=== PATIENT | male | born 1955 | race Caucasian/White ===

== ENCOUNTER → 2017-03-01 | Outpatient (CLI) | payer BC, OTHER ==
--- NOTE | 2017-03-01 18:17 | REP ---
SUPINE ABDOMEN: 03/01/2017: Technique: Two views to encompass the entirety of the abdomen provided. Clinical history: Renal stone disease. Comparison: 09/05/2014. Findings: There are two calcifications over the right renal fossa one upper pole and the other interpolar lower pole region and measuring 6.4 superiorly and 9.1 mm for the more inferior calcification. I suspect a small calcification may be present in the lower pole on the left about 3 mm. Marginal osteophytes are noted. Pedicles, spinous and transverse processes intact. SI joints intact. Impression: 1. Two calcifications over the right renal fossa and one over the lower pole on the left essentially unchanged from the 2013 exam. A few pelvic phleboliths noted and degenerative changes in the spine. No other findings.
== END ==
LOC: M CLY 14:15
PROVIDERS: ATTEND Physician Assistant
DX: N20.0 Calculus of kidney (principal); I87.8 Other specified disorders of veins; M51.9 Unspecified thoracic, thoracolumbar and lumbosacral intervertebral disc disorder

== ENCOUNTER → 2017-03-10 | Outpatient (REF) | payer BC, OTHER ==
[2017-03-10 13:00] LABS: BASO % 0.6 % (0.0-1.0); EOS # 0.1 K/mm3 (0.0-0.50); EOS % 2.2 % (0.0-3.0); LARGE UNSTAINED CELL # 0.1 K/mm3 (0.0-0.4); LARGE UNSTAINED CELL % 2.9 % (0.0-4.0); LYMPH # 1.4 K/mm3 (1.5-4.5); LYMPH % 27.9 % (24.0-44.0); MEAN CORPUSCULAR HEMOGLOBIN 31.6 pg (27.0-33.0); MEAN CORPUSCULAR HGB CONC 34.7 g/dl (32.0-36.5); MONO # 0.3 K/mm3 (0.0-0.8); MONO % 7.3 % (0.0-5.0); NEUTROPHILS # 2.7 K/mm3 (1.8-7.7); NEUTROPHILS % 58.9 % (36.0-66.0); PLATELET COUNT, AUTOMATED 270 k/mm3 (150-450); RED CELL DISTRIBUTION WIDTH 13.4 % (11.5-14.5); WHITE BLOOD COUNT 4.6 K/mm3 (4.0-10.0)
[2017-03-10 14:08] LABS: ALBUMIN/GLOBULIN RATIO 1.14 (1.00-1.93); ALKALINE PHOSPHATASE 72 U/L (45-117); ALT/SGPT 29 U/L (12-78); ANION GAP 8 MEQ/L (8-16); AST/SGOT 17 U/L (15-37); BILIRUBIN,TOTAL 0.6 MG/DL (0.2-1.0); BLOOD UREA NITROGEN 17 MG/DL (7-18); CALCIUM LEVEL 9.4 MG/DL (8.8-10.2); CARBON DIOXIDE LEVEL 28 MEQ/L (21-32); CHLORIDE LEVEL 105 MEQ/L (98-107); CREATININE FOR GFR 1.07 MG/DL (0.70-1.30); GLOMERULAR FILTRATION RATE > 60.0 (>49); GLUCOSE, FASTING 93 MG/DL (80-110); POTASSIUM SERUM 4.2 MEQ/L (3.5-5.1); SODIUM LEVEL 141 MEQ/L (136-145); TOTAL PROTEIN 7.5 GM/DL (6.4-8.2)
== END ==
LOC: M LABNEURO 11:45
PROVIDERS: ATTEND Psychiatry & Neurology Neurology
DX: R56.9 Unspecified convulsions (principal)

== ENCOUNTER → 2017-06-27 | Outpatient (REF) | payer OTHER ==
[2017-06-27 17:18] LABS: ALBUMIN 3.7 GM/DL (3.2-5.2); ALBUMIN/GLOBULIN RATIO 1.03 (1.00-1.93); ALKALINE PHOSPHATASE 75 U/L (45-117); ALT/SGPT 38 U/L (12-78); ANION GAP 10 MEQ/L (8-16); AST/SGOT 17 U/L (15-37); BASO % 0.9 % (0.0-1.0); BILIRUBIN,TOTAL 0.4 MG/DL (0.2-1.0); BLOOD UREA NITROGEN 21 MG/DL (7-18); CALCIUM LEVEL 9.2 MG/DL (8.8-10.2); CARBON DIOXIDE LEVEL 26 MEQ/L (21-32); CHLORIDE LEVEL 107 MEQ/L (98-107); CHOLESTEROL LEVEL 237 MG/DL (<200); CREATININE FOR GFR 1.09 MG/DL (0.70-1.30); EOS # 0.2 K/mm3 (0.0-0.50); EOS % 3.3 % (0.0-3.0); GLOMERULAR FILTRATION RATE > 60.0 (>49); GLUCOSE, FASTING 91 MG/DL (80-110); LARGE UNSTAINED CELL # 0.2 K/mm3 (0.0-0.4); LARGE UNSTAINED CELL % 3.9 % (0.0-4.0); LYMPH % 38.6 % (24.0-44.0); MEAN CORPUSCULAR HEMOGLOBIN 31.1 pg (27.0-33.0); MEAN CORPUSCULAR HGB CONC 34.1 g/dl (32.0-36.5); MEAN CORPUSCULAR VOLUME 91.4 fl (80.0-96.0); MONO # 0.4 K/mm3 (0.0-0.8); MONO % 7.9 % (0.0-5.0); NEUTROPHILS # 2.3 K/mm3 (1.8-7.7); NEUTROPHILS % 45.4 % (36.0-66.0); PLATELET COUNT, AUTOMATED 300 k/mm3 (150-450); POTASSIUM SERUM 4.4 MEQ/L (3.5-5.1); RED CELL DISTRIBUTION WIDTH 12.6 % (11.5-14.5); SODIUM LEVEL 143 MEQ/L (136-145); TOTAL PROTEIN 7.3 GM/DL (6.4-8.2); TRIGLYCERIDES LEVEL 102 MG/DL (<150)
== END ==
LOC: M SFHCCAPE 06:59
PROVIDERS: ATTEND Physician Assistant
DX: I10 Essential (primary) hypertension (principal); E78.00 Pure hypercholesterolemia, unspecified

== ENCOUNTER → 2017-08-14 | Outpatient (REF) | payer OTHER | LOC: M SFHCCAPE 13:55 | PROVIDERS: ATTEND Physician Assistant | DX: M54.5 Low back pain (principal) ==

== ENCOUNTER → 2017-08-15 | Outpatient (CLI) | payer BC ==
--- NOTE | 2017-08-15 15:49 | REP ---
Thoracic spine four views: Comparison is a PA and lateral chest dated 06/13/2012. There is demineralization. There are mild grade 1 compression deformities of the T7, eight, 90 and 10 vertebral bodies, unchanged. There is moderate degenerative disc disease throughout the thoracic spine, unchanged. The pedicles are unremarkable. There are no lytic, blastic or destructive skeletal changes. Impression: Multiple grade 1 compression deformities of mid thoracic vertebral bodies, unchanged. Demineralization. Degenerative disc disease throughout the thoracic spine, unchanged.
--- NOTE | 2017-08-15 15:51 | REP ---
Lumbar spine five views: Comparison is a supine abdomen dated 03/01/2017. There are calcification superimposed over the right kidney, similar to the prior study. No left renal calculi are identified. Vertebral body heights and alignment are normal. There is degenerative disc disease at every lumbar level. This is unchanged. 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 There is no spondylolysis. There is no spondylolisthesis. There is mild osteoarthritis in the facet articulations. The pedicles and sacroiliac articulations are unremarkable. Impression: Multilevel degenerative disc disease. Mild facet osteoarthritis. Calcifications projected over the right kidney.
== END ==
LOC: M CLY 13:45
PROVIDERS: ATTEND Physician Assistant
DX: M54.6 Pain in thoracic spine (principal)

== ENCOUNTER → 2017-09-27 | Outpatient (REF) | payer OTHER ==
[2017-09-27 16:28] LABS: BASO # 0.1 10^3/uL (0.0-0.2); BASO % 1.1 % (0.0-1.0); EOS # 0.1 10^3/uL (0.0-0.50); EOS % 2.3 % (0.0-3.0); IMMATURE GRANULOCYTE % 0.2 % (0-0); LYMPH # 1.6 10^3/uL (1.5-4.5); LYMPH % 31.4 % (24.0-44.0); MEAN CORPUSCULAR HEMOGLOBIN 30.6 pg (27.0-33.0); MEAN CORPUSCULAR HGB CONC 34.6 g/dl (32.0-36.5); MEAN CORPUSCULAR VOLUME 88.3 fl (80.0-96.0); MONO # 0.5 10^3/uL (0.0-0.8); MONO % 9.6 % (0.0-5.0); NEUTROPHILS # 2.9 10^3/uL (1.8-7.7); NEUTROPHILS % 55.4 % (36.0-66.0); PLATELET COUNT, AUTOMATED 320 10^3/uL (150-450); RED CELL DISTRIBUTION WIDTH 12.2 % (11.5-14.5); WHITE BLOOD COUNT 5.2 10^3/uL (4.0-10.0)
[2017-09-27 16:36] LABS: ALBUMIN 4.2 GM/DL (3.2-5.2); ALBUMIN/GLOBULIN RATIO 1.17 (1.00-1.93); ALKALINE PHOSPHATASE 79 U/L (45-117); ALT/SGPT 28 U/L (12-78); ANION GAP 10 MEQ/L (8-16); AST/SGOT 15 U/L (7-37); BILIRUBIN,TOTAL 0.6 MG/DL (0.2-1.0); BLOOD UREA NITROGEN 22 MG/DL (7-18); CARBON DIOXIDE LEVEL 25 MEQ/L (21-32); CHLORIDE LEVEL 102 MEQ/L (98-107); CREATININE FOR GFR 1.12 MG/DL (0.70-1.30); GLOMERULAR FILTRATION RATE > 60.0 (>49); GLUCOSE, FASTING 98 MG/DL (80-110); POTASSIUM SERUM 4.3 MEQ/L (3.5-5.1); SODIUM LEVEL 137 MEQ/L (136-145); TOTAL PROTEIN 7.8 GM/DL (6.4-8.2)
[2017-09-27 16:41] LABS: VITAMIN B12 LEVEL 858 PG/ML (247-911)
[2017-09-27 16:57] LABS: ERYTHROCYTE SEDIMENTATION RATE 14 mm/hr (0-20)
[2017-10-03 10:14] LABS: Lyme Disease IgG/IgM Antibodie <0.91 ISR (0.00-0.90); Lyme Disease IgM Ab Quantitati <0.80 index (0.00-0.79)
== END ==
LOC: M SFHCCAPE 08:43
PROVIDERS: ATTEND Physician Assistant
DX: M25.50 Pain in unspecified joint (principal)

== ENCOUNTER → 2018-01-14 | Outpatient (REF) | payer OTHER | LOC: M LAB REF 19:06 | DX: R30.0 Dysuria (principal) ==

== ENCOUNTER → 2018-03-05 | Outpatient (CLI) | payer BC, OTHER | LOC: M CLY 09:41 | DX: N20.0 Calculus of kidney (principal) | CPT/HCPCS: 74018 ==

== ENCOUNTER → 2019-03-05 | Outpatient (REF) | payer OTHER | LOC: M LABDRWCV 17:03 | PROVIDERS: ATTEND Urology | DX: N20.0 Calculus of kidney (principal) ==

== ENCOUNTER → 2019-06-21 | Outpatient (CLI) | payer OTHER ==
[2019-06-21 12:10] LABS: BASO # 0.1 10^3/uL (0.0-0.2); EOS # 0.1 10^3/uL (0.0-0.50); EOS % 2.1 % (0.0-3.0); HEMATOCRIT 43.5 % (42.0-52.0); HEMOGLOBIN 14.6 g/dl (13.5-17.5); LYMPH # 1.7 10^3/uL (1.5-4.5); MEAN CORPUSCULAR HEMOGLOBIN 29.4 pg (27.0-33.0); MEAN CORPUSCULAR HGB CONC 33.6 g/dl (32.0-36.5); MEAN CORPUSCULAR VOLUME 87.5 fl (80.0-96.0); MONO # 0.7 10^3/uL (0.0-0.8); MONO % 11.3 % (0.0-5.0); NEUTROPHILS # 3.2 10^3/uL (1.8-7.7); NEUTROPHILS % 55.4 % (36.0-66.0); PLATELET COUNT, AUTOMATED 289 10^3/uL (150-450); RED BLOOD COUNT 4.97 10^6/uL (4.30-6.10); WHITE BLOOD COUNT 5.7 10^3/uL (4.0-10.0)
[2019-06-21 12:15] LABS: ALT/SGPT 23 U/L (12-78); BILIRUBIN,TOTAL 0.6 MG/DL (0.2-1.0); BLOOD UREA NITROGEN 25 MG/DL (7-18); CALCIUM LEVEL 9.4 MG/DL (8.8-10.2); CARBON DIOXIDE LEVEL 26 MEQ/L (21-32); CHLORIDE LEVEL 104 MEQ/L (98-107); CREATININE FOR GFR 1.16 MG/DL (0.70-1.30); GLOMERULAR FILTRATION RATE > 60.0 (>49); GLUCOSE, FASTING 89 MG/DL (70-100); POTASSIUM SERUM 4.3 MEQ/L (3.5-5.1); SODIUM LEVEL 140 MEQ/L (136-145); TOTAL PROTEIN 7.7 GM/DL (6.4-8.2)
[2019-06-21 12:23] LABS: TOTAL 25(OH) VITAMIN D 50.8 NG/ML (30.0-100.0)
[2019-06-21 12:24] LABS: VITAMIN B12 LEVEL 603 PG/ML (247-911)
[2019-06-21 12:45] LABS: FOLATE > 24.0 NG/ML (>5.4)
== END ==
LOC: M WUC 08:46
PROVIDERS: ATTEND Psychiatry & Neurology Neurology
DX: G40.89 Other seizures (principal)

== ENCOUNTER → 2019-10-21 | Outpatient (REF) | payer OTHER ==
[2019-10-21 16:56] LABS: BASO # 0.1 10^3/uL (0.0-0.2); BASO % 1.7 % (0.0-1.0); EOS # 0.2 10^3/uL (0.0-0.5); HEMATOCRIT 41.7 % (42.0-52.0); HEMOGLOBIN 13.8 g/dl (13.5-17.5); LYMPH # 1.9 10^3/uL (1.5-5.0); LYMPH % 30.9 % (24.0-44.0); MEAN CORPUSCULAR HEMOGLOBIN 30.3 pg (27.0-33.0); MEAN CORPUSCULAR HGB CONC 33.1 g/dl (32.0-36.5); MEAN CORPUSCULAR VOLUME 91.4 fl (80.0-96.0); MONO # 0.7 10^3/uL (0.0-0.8); MONO % 11.1 % (0.0-5.0); NEUTROPHILS # 3.2 10^3/uL (1.5-8.5); PLATELET COUNT, AUTOMATED 359 10^3/uL (150-450); RED BLOOD COUNT 4.56 10^6/uL (4.30-6.10); WHITE BLOOD COUNT 6.1 10^3/uL (4.0-10.0)
[2019-10-21 17:20] LABS: ALBUMIN 3.7 GM/DL (3.2-5.2); ALT/SGPT 26 U/L (12-78); BILIRUBIN,TOTAL 0.4 MG/DL (0.2-1.0); BLOOD UREA NITROGEN 24 MG/DL (7-18); CALCIUM LEVEL 9.4 MG/DL (8.8-10.2); CARBON DIOXIDE LEVEL 26 MEQ/L (21-32); CHLORIDE LEVEL 105 MEQ/L (98-107); CHOLESTEROL LEVEL 208 MG/DL (<200); CREATININE FOR GFR 1.11 MG/DL (0.70-1.30); GLOMERULAR FILTRATION RATE > 60.0 (>49); GLUCOSE, FASTING 89 MG/DL (70-100); HDL CHOLESTEROL 65 MG/DL (>40); LDL CHOLESTEROL 122 MG/DL (<100); NON-HDL-C 143 MG/DL; POTASSIUM SERUM 4.5 MEQ/L (3.5-5.1); SODIUM LEVEL 139 MEQ/L (136-145); TOTAL PROTEIN 7.8 GM/DL (6.4-8.2); TRIGLYCERIDES LEVEL 105 MG/DL (<150)
== END ==
LOC: M SFHCCAPE 07:23
PROVIDERS: ATTEND Physician Assistant
DX: I10 Essential (primary) hypertension (principal); Z12.5 Encounter for screening for malignant neoplasm of prostate
CPT/HCPCS: 80053; 80061; 84443; 85025; G0103

== ENCOUNTER → 2019-10-30 | Outpatient (CLI) | payer BC, OTHER ==
--- NOTE | 2019-10-31 11:26 | REP ---
Clinical: Hypertension and atherosclerotic disease . Technique: Saldivar scale and color Doppler evaluation using linear high frequency transducer Findings: Two-dimensional saldivar scale and color images demonstrate minimal intimal thickening with normal arterial lumen and no appreciable narrowing. Color Doppler interrogation demonstrates normal arterial wave patterns and velocities with no significant spectral broadening. Normal flow direction is appreciated in the bilateral vertebral arteries. RIGHT (cm/s) LEFT (cm/s) ICA peak systolic velocity 59.1 43.9 ICA diastolic velocity 21.1 16.7 ECA peak systolic velocity 73.9 59.9 CCA peak systolic velocity 99.8 107.4 ICA/CCA ratio 0.6 0.4 Impression: No hemodynamically significant areas of narrowing or stenosis appreciated. Based on set standards narrowing falls within the normal/less than 50% range. Electronically Signed by Stalin Rivas MD 10/31/2019 06:48 A
== END ==
LOC: M RAD 11:23
PROVIDERS: ATTEND Physician Assistant
DX: Z13.6 Encounter for screening for cardiovascular disorders (principal); I10 Essential (primary) hypertension; I70.90 Unspecified atherosclerosis

== ENCOUNTER → 2020-09-28 | Outpatient (CLI) | payer BC, OTHER | LOC: M LABSMTC 07:53 | PROVIDERS: ATTEND Pediatrics | DX: Z20.828 Contact with and (suspected) exposure to other viral communicable diseases (principal) ==

== ENCOUNTER → 2020-10-02 | Outpatient (REF) | payer OTHER ==
[2020-10-02 11:59] LABS: BASO # 0.1 10^3/uL (0.0-0.2); BASO % 1.6 % (0.0-1.0); EOS # 0.2 10^3/uL (0.0-0.5); EOS % 4.1 % (0.0-3.0); HEMATOCRIT 41.2 % (42.0-52.0); HEMOGLOBIN 13.6 g/dl (13.5-17.5); LYMPH # 1.6 10^3/uL (1.5-5.0); LYMPH % 32.2 % (24.0-44.0); MEAN CORPUSCULAR VOLUME 93.8 fl (80.0-96.0); MONO # 0.4 10^3/uL (0.0-0.8); NEUTROPHILS # 2.6 10^3/uL (1.5-8.5); NEUTROPHILS % 52.9 % (36.0-66.0); PLATELET COUNT, AUTOMATED 357 10^3/uL (150-450); RED BLOOD COUNT 4.39 10^6/uL (4.30-6.10); WHITE BLOOD COUNT 4.9 10^3/uL (4.0-10.0)
[2020-10-02 12:10] LABS: ALBUMIN 3.7 GM/DL (3.2-5.2); ALT/SGPT 27 U/L (12-78); BILIRUBIN,TOTAL 0.4 MG/DL (0.2-1.0); BLOOD UREA NITROGEN 18 MG/DL (7-18); CALCIUM LEVEL 9.4 MG/DL (8.8-10.2); CARBON DIOXIDE LEVEL 27 MEQ/L (21-32); CHLORIDE LEVEL 109 MEQ/L (98-107); GLOMERULAR FILTRATION RATE > 60.0 (>49); GLUCOSE, FASTING 100 MG/DL (70-100); POTASSIUM SERUM 4.9 MEQ/L (3.5-5.1); SODIUM LEVEL 141 MEQ/L (136-145); TOTAL PROTEIN 7.1 GM/DL (6.4-8.2)
== END ==
LOC: M LABDRAWC 11:17
PROVIDERS: ATTEND Psychiatry & Neurology Neurology
DX: G40.89 Other seizures (principal)

== ENCOUNTER → 2020-10-02 | Outpatient (REF) | payer OTHER ==
[2020-10-02 11:51] LABS: BASO # 0.1 10^3/uL (0.0-0.2); BASO % 1.8 % (0.0-1.0); EOS # 0.2 10^3/uL (0.0-0.5); EOS % 3.7 % (0.0-3.0); HEMATOCRIT 40.1 % (42.0-52.0); HEMOGLOBIN 13.1 g/dl (13.5-17.5); LYMPH # 1.6 10^3/uL (1.5-5.0); LYMPH % 32.6 % (24.0-44.0); MEAN CORPUSCULAR HEMOGLOBIN 30.4 pg (27.0-33.0); MEAN CORPUSCULAR HGB CONC 32.7 g/dl (32.0-36.5); MONO # 0.5 10^3/uL (0.0-0.8); MONO % 9.4 % (0.0-5.0); NEUTROPHILS # 2.5 10^3/uL (1.5-8.5); NEUTROPHILS % 52.3 % (36.0-66.0); PLATELET COUNT, AUTOMATED 355 10^3/uL (150-450); RED BLOOD COUNT 4.31 10^6/uL (4.30-6.10); WHITE BLOOD COUNT 4.9 10^3/uL (4.0-10.0)
[2020-10-02 12:11] LABS: ALBUMIN 3.8 GM/DL (3.2-5.2); ALT/SGPT 26 U/L (12-78); BILIRUBIN,TOTAL 0.4 MG/DL (0.2-1.0); BLOOD UREA NITROGEN 18 MG/DL (7-18); CALCIUM LEVEL 9.5 MG/DL (8.8-10.2); CARBON DIOXIDE LEVEL 29 MEQ/L (21-32); CHLORIDE LEVEL 108 MEQ/L (98-107); CHOLESTEROL LEVEL 188 MG/DL (<200); CREATININE FOR GFR 1.02 MG/DL (0.70-1.30); FREE T4 0.83 NG/DL (0.76-1.46); GLOMERULAR FILTRATION RATE > 60.0 (>49); GLUCOSE, FASTING 104 MG/DL (70-100); HDL CHOLESTEROL 81 MG/DL (>40); LDL CHOLESTEROL 94 MG/DL (<100); NON-HDL-C 107 MG/DL; POTASSIUM SERUM 4.9 MEQ/L (3.5-5.1); SODIUM LEVEL 141 MEQ/L (136-145); TOTAL PROTEIN 7.3 GM/DL (6.4-8.2); TRIGLYCERIDES LEVEL 64 MG/DL (<150)
[2020-10-02 12:12] LABS: TOTAL 25(OH) VITAMIN D 40.8 NG/ML (30.0-100.0)
== END ==
LOC: M SFHCCLAY 07:09
PROVIDERS: ATTEND Physician Assistant
DX: I10 Essential (primary) hypertension (principal); E78.5 Hyperlipidemia, unspecified; E55.9 Vitamin D deficiency, unspecified; Z12.5 Encounter for screening for malignant neoplasm of prostate

== ENCOUNTER → 2020-10-02 | Outpatient (REF) | payer OTHER | LOC: M LABDRAWC 11:19 | PROVIDERS: ATTEND Nurse Practitioner Family | DX: Z12.5 Encounter for screening for malignant neoplasm of prostate (principal) ==

== ENCOUNTER → 2020-10-19 | Outpatient (CLI) | payer SELFPAY | LOC: M LABSMTC 10:18 | PROVIDERS: ATTEND Pediatrics | DX: Z20.828 Contact with and (suspected) exposure to other viral communicable diseases (principal) ==

== ENCOUNTER → 2020-11-09 | Outpatient (CLI) | payer SELFPAY | LOC: M LABSMTC 10:01 | PROVIDERS: ATTEND Pediatrics | DX: Z20.822 Contact with and (suspected) exposure to COVID-19 (principal) ==

== ENCOUNTER → 2021-07-20 | Outpatient (REF) | payer OTHER ==
[2021-07-20 15:54] LABS: APPEARANCE, URINE CLEAR (CLEAR); BACTERIA, URINE AUTO NEGATIVE (NEGATIVE); BILIRUBIN, URINE AUTO NEGATIVE (NEGATIVE); BLOOD, URINE BLOOD NEGATIVE (NEGATIVE); COLOR, URINE YELLOW (YELLOW); GLUCOSE, URINE (UA) AUTO NEGATIVE (NEGATIVE); KETONE, URINE AUTO NEGATIVE (NEGATIVE); LEUKOCYTE ESTERASE, URINE AUTO NEGATIVE (NEGATIVE); NITRITE, URINE AUTO NEGATIVE (NEGATIVE); PROTEIN, URINE AUTO NEGATIVE (NEGATIVE); RBC, URINE AUTO 1 /HPF (0-3); SPECIFIC GRAVITY URINE AUTO 1.006 (1.002-1.035); SQUAMOUS EPITHELIAL CELL UR AU 0 /HPF (0-6); UROBILINOGEN, URINE AUTO 0.2 mg/dL (0.0-2.0); WBC, URINE AUTO 0 /HPF (0-3)
[2021-07-20 16:14] LABS: BASO # 0.1 10^3/uL (0.0-0.2); BASO % 1.5 % (0.0-1.0); EOS # 0.1 10^3/uL (0.0-0.5); EOS % 2.6 % (0.0-3.0); HEMATOCRIT 40.7 % (42.0-52.0); HEMOGLOBIN 13.8 g/dl (13.5-17.5); LYMPH # 1.6 10^3/uL (1.5-5.0); MEAN CORPUSCULAR HEMOGLOBIN 31.1 pg (27.0-33.0); MEAN CORPUSCULAR HGB CONC 33.9 g/dl (32.0-36.5); MEAN CORPUSCULAR VOLUME 91.7 fl (80.0-96.0); MONO # 0.5 10^3/uL (0.0-0.8); NEUTROPHILS # 2.3 10^3/uL (1.5-8.5); NEUTROPHILS % 50.7 % (36.0-66.0); PLATELET COUNT, AUTOMATED 349 10^3/uL (150-450); RED BLOOD COUNT 4.44 10^6/uL (4.30-6.10); WHITE BLOOD COUNT 4.6 10^3/uL (4.0-10.0)
[2021-07-20 16:28] LABS: ALBUMIN 3.8 GM/DL (3.2-5.2); ALT/SGPT 28 U/L (12-78); BILIRUBIN,TOTAL 0.5 MG/DL (0.2-1.0); BLOOD UREA NITROGEN 17 MG/DL (7-18); CALCIUM LEVEL 9.6 MG/DL (8.8-10.2); CARBON DIOXIDE LEVEL 26 MEQ/L (21-32); CHLORIDE LEVEL 104 MEQ/L (98-107); CREATININE FOR GFR 0.99 MG/DL (0.70-1.30); GLOMERULAR FILTRATION RATE > 60.0 (>49); GLUCOSE, FASTING 92 MG/DL (70-100); POTASSIUM SERUM 4.2 MEQ/L (3.5-5.1); SODIUM LEVEL 139 MEQ/L (136-145); TOTAL PROTEIN 7.6 GM/DL (6.4-8.2)
== END ==
LOC: M SFHCCAPE 09:52
PROVIDERS: ATTEND Physician Assistant
DX: Z01.818 Encounter for other preprocedural examination (principal); N20.0 Calculus of kidney

== ENCOUNTER → 2021-12-28 | Outpatient (CLI) | payer MEDICARE, BC, OTHER | LOC: M RAD 14:21 | PROVIDERS: ATTEND Physician Assistant | DX: Z13.6 Encounter for screening for cardiovascular disorders (principal); I65.23 Occlusion and stenosis of bilateral carotid arteries ==

== ENCOUNTER → 2022-02-02 | Outpatient (REF) | payer MEDICARE, OTHER, BC | LOC: M LABDRWCV 15:33 | PROVIDERS: ATTEND Urology | DX: N20.0 Calculus of kidney (principal) ==

== ENCOUNTER → 2022-09-06 | Outpatient (CLI) | payer MEDICARE, BC, OTHER ==
[~2022-09-06] MED LIST: AMLO2.5T3 PO; LAMO150T3 PO; PRAV80TA2 PO; QUIN10TA32 PO
== END ==
LOC: M LABSMTC 10:38
PROVIDERS: ATTEND Anesthesiology
DX: Z01.812 Encounter for preprocedural laboratory examination (principal); Z11.52 Encounter for screening for COVID-19

== ENCOUNTER → 2022-10-03 | Outpatient (CLI) | payer MEDICARE, BC, OTHER | LOC: M LABSMTC 10:44 | PROVIDERS: ATTEND Anesthesiology | DX: Z01.812 Encounter for preprocedural laboratory examination (principal); Z11.52 Encounter for screening for COVID-19 ==

== ENCOUNTER 2022-10-06 07:43 | Day surgery (SDC) | payer MEDICARE, BC, OTHER ==
[~2022-10-06] VITALS: Ht 180.3 cm; Wt 96.2 kg
[~2022-10-06 07:43] MED LIST changes: +NS 1,000 ML IV ONE
[2022-10-06] MEDS ORDERED: LIDOCAINE 2% 100MG/5ML SDV (FOR ANES.) As Ordered ONE (07:51)
[2022-10-06] MEDS ORDERED: propofoL 200 MG/20 ML VIAL As Ordered ONE (07:51)
[2022-10-06 10:13] VITALS: BP 156/85
== END 2022-10-06 10:23 | disposition home or self-care (01) ==
LOC: M OPP 07:43
PROVIDERS: ATTEND Internal Medicine Gastroenterology
DX: Z12.11 Encounter for screening for malignant neoplasm of colon (principal); D12.2 Benign neoplasm of ascending colon; K57.30 Diverticulosis of large intestine without perforation or abscess without bleeding; K64.4 Residual hemorrhoidal skin tags; K64.8 Other hemorrhoids; I10 Essential (primary) hypertension; G40.89 Other seizures; Z79.02 Long term (current) use of antithrombotics/antiplatelets; Z79.82 Long term (current) use of aspirin; Z86.69 Personal history of other diseases of the nervous system and sense organs; Z87.442 Personal history of urinary calculi

== ENCOUNTER → 2022-11-02 | Outpatient (REF) | payer MEDICARE, OTHER ==
[~2022-11-02] MED LIST changes: -NS 1,000 ML IV ONE
[2022-11-02 18:10] LABS: BASO # 0.1 10^3/uL (0.0-0.2); BASO % 1.5 % (0.0-1.0); EOS # 0.1 10^3/uL (0.0-0.5); EOS % 2.4 % (0.0-3.0); HEMATOCRIT 43.9 % (42.0-52.0); HEMOGLOBIN 14.9 g/dl (13.5-17.5); LYMPH # 1.7 10^3/uL (1.5-5.0); LYMPH % 30.6 % (24.0-44.0); MEAN CORPUSCULAR HEMOGLOBIN 30.7 pg (27.0-33.0); MEAN CORPUSCULAR HGB CONC 33.9 g/dl (32.0-36.5); MEAN CORPUSCULAR VOLUME 90.3 fl (80.0-96.0); MONO # 0.5 10^3/uL (0.0-0.8); NEUTROPHILS % 55.1 % (36.0-66.0); PLATELET COUNT, AUTOMATED 351 10^3/uL (150-450); RED BLOOD COUNT 4.86 10^6/uL (4.30-6.10); WHITE BLOOD COUNT 5.4 10^3/uL (4.0-10.0)
[2022-11-02 18:33] LABS: FREE T4 0.99 NG/DL (0.89-1.76)
[2022-11-02 18:34] LABS: ALBUMIN 4.1 G/DL (3.2-5.2); ALKALINE PHOSPHATASE 108 U/L (46-116); ALT/SGPT 31 U/L (7.0-40); AST/SGOT 19 U/L (<34); BILIRUBIN,TOTAL 0.5 MG/DL (0.3-1.2); BLOOD UREA NITROGEN 15 MG/DL (9-23); CALCIUM LEVEL 9.8 MG/DL (8.3-10.6); CARBON DIOXIDE LEVEL 24 MMOL/L (20-31); CHLORIDE LEVEL 107 MMOL/L (98-107); CHOLESTEROL LEVEL 219 MG/DL (<200); CHOLESTEROL RISK RATIO 3.08 (<5); CREATININE FOR GFR 0.94 MG/DL (0.70-1.30); GLOMERULAR FILTRATION RATE > 60.0 (>49); GLUCOSE, FASTING 101 MG/DL (74-106); LDL CHOLESTEROL 136.8 MG/DL (<100); NON-HDL-C 148 MG/DL; POTASSIUM SERUM 4.9 MMOL/L (3.5-5.1); SODIUM LEVEL 140 MMOL/L (136-145); TOTAL PROTEIN 7.6 G/DL (5.7-8.2); TRIGLYCERIDES LEVEL 56 MG/DL (<150)
== END ==
LOC: M SFHCCAPE 09:13
PROVIDERS: ATTEND Physician Assistant
DX: I11.9 Hypertensive heart disease without heart failure (principal); E78.5 Hyperlipidemia, unspecified; E55.9 Vitamin D deficiency, unspecified; Z79.899 Other long term (current) drug therapy

== ENCOUNTER → 2023-02-16 | Outpatient (REF) | payer MEDICARE, OTHER | LOC: M LABDRWCV 18:11 | PROVIDERS: ATTEND Urology | DX: N20.0 Calculus of kidney (principal) ==

== ENCOUNTER → 2023-10-24 | Outpatient (CLI) | payer MEDICARE, OTHER, BC | LOC: M CLY 15:41 | PROVIDERS: ATTEND Physician Assistant Medical | DX: R05.3 Chronic cough (principal) ==

== ENCOUNTER → 2023-11-06 | Outpatient (REF) | payer MEDICARE, BC, OTHER ==
[2023-11-06 17:23] LABS: BASO # 0.1 10^3/uL (0.0-0.2); BASO % 1.5 % (0.0-1.0); EOS # 0.2 10^3/uL (0.0-0.5); EOS % 3.9 % (0.0-3.0); HEMATOCRIT 37.1 % (42.0-52.0); HEMOGLOBIN 12.7 g/dl (13.5-17.5); LYMPH # 1.7 10^3/uL (1.5-5.0); LYMPH % 29.1 % (24.0-44.0); MEAN CORPUSCULAR HEMOGLOBIN 30.4 pg (27.0-33.0); MEAN CORPUSCULAR HGB CONC 34.2 g/dl (32.0-36.5); MEAN CORPUSCULAR VOLUME 88.8 fl (80.0-96.0); MONO # 0.7 10^3/uL (0.0-0.8); MONO % 11.2 % (2.0-8.0); NEUTROPHILS # 3.2 10^3/uL (1.5-8.5); NEUTROPHILS % 54.1 % (36.0-66.0); PLATELET COUNT, AUTOMATED 331 10^3/uL (150-450); RED BLOOD COUNT 4.18 10^6/uL (4.30-6.10)
[2023-11-06 17:44] LABS: PSA SCREENING 0.79 NG/ML (< 4.00)
[2023-11-06 17:46] LABS: ALBUMIN 3.6 G/DL (3.2-5.2); ALKALINE PHOSPHATASE 102 U/L (46-116); ALT/SGPT 27 U/L (7.0-40); AST/SGOT 15 U/L (<34); BILIRUBIN,TOTAL 0.3 MG/DL (0.3-1.2); BLOOD UREA NITROGEN 20 MG/DL (9-23); CALCIUM LEVEL 9.5 MG/DL (8.3-10.6); CARBON DIOXIDE LEVEL 26 MMOL/L (20-31); CHLORIDE LEVEL 109 MMOL/L (98-107); CHOLESTEROL LEVEL 196 MG/DL (<200); CHOLESTEROL RISK RATIO 3.25 (<5); CREATININE FOR GFR 1.07 MG/DL (0.70-1.30); GLOMERULAR FILTRATION RATE > 60.0 (>49); GLUCOSE, FASTING 99 MG/DL (74-106); HDL CHOLESTEROL 60.3 MG/DL (>40); LDL CHOLESTEROL 120.9 MG/DL (<100); NON-HDL-C 135.7 MG/DL; POTASSIUM SERUM 4.4 MMOL/L (3.5-5.1); SODIUM LEVEL 139 MMOL/L (136-145); TOTAL PROTEIN 7.2 G/DL (5.7-8.2); TRIGLYCERIDES LEVEL 74 MG/DL (<150)
== END ==
LOC: M SFHCCAPE 07:14
PROVIDERS: ATTEND Physician Assistant Medical
DX: I10 Essential (primary) hypertension (principal); Z86.69 Personal history of other diseases of the nervous system and sense organs; Z12.5 Encounter for screening for malignant neoplasm of prostate; E78.5 Hyperlipidemia, unspecified
CPT/HCPCS: 80053; 80061; 85025; G0103

== ENCOUNTER → 2024-01-22 | Outpatient (REF) | payer MEDICARE, BC, OTHER | LOC: M SFHCCAPE 16:37 | PROVIDERS: ATTEND Physician Assistant Medical | DX: R05.1 Acute cough (principal) ==

== ENCOUNTER → 2024-01-24 | Outpatient (CLI) | payer MEDICARE, BC | LOC: M CLY 14:22 | PROVIDERS: ATTEND Physician Assistant Medical | DX: R05.1 Acute cough (principal) ==

== ENCOUNTER → 2024-02-14 | Outpatient (REF) | payer MEDICARE, BC | LOC: M LABDRWCV 16:39 | PROVIDERS: ATTEND Physician Assistant Medical | DX: Z12.5 Encounter for screening for malignant neoplasm of prostate (principal) ==

== ENCOUNTER → 2024-02-20 | Outpatient (CLI) | payer MEDICARE, BC | LOC: M CLY 08:50 | PROVIDERS: ATTEND Urology | DX: N20.0 Calculus of kidney (principal); M47.816 Spondylosis without myelopathy or radiculopathy, lumbar region ==

== ENCOUNTER → 2024-02-22 | Outpatient (CLI) | payer MEDICARE, BC | LOC: M PLAIMG 10:03 | PROVIDERS: ATTEND Student in an Organized Health Care Education/Training Program | DX: M47.22 Other spondylosis with radiculopathy, cervical region (principal); Z98.1 Arthrodesis status ==

== ENCOUNTER → 2024-07-03 | Outpatient (CLI) | payer MEDICARE, BC | LOC: M CLY 07:32 | PROVIDERS: ATTEND Physician Assistant Medical | DX: N20.2 Calculus of kidney with calculus of ureter (principal) ==

== ENCOUNTER → 2024-07-17 | Outpatient (REF) | payer MEDICARE, BC ==
[2024-07-17 17:49] LABS: APPEARANCE, URINE CLEAR (CLEAR); BACTERIA, URINE AUTO NEGATIVE (NEGATIVE); BASO # 0.1 10^3/uL (0.0-0.2); BASO % 1.6 % (0.0-1.0); BILIRUBIN, URINE AUTO NEGATIVE (NEGATIVE); BLOOD, URINE BLOOD NEGATIVE (NEGATIVE); COLOR, URINE YELLOW (YELLOW); EOS # 0.2 10^3/uL (0.0-0.5); EOS % 4.7 % (0.0-3.0); GLUCOSE, URINE (UA) AUTO NEGATIVE (NEGATIVE); HEMATOCRIT 40.4 % (42.0-52.0); HEMOGLOBIN 13.1 g/dl (13.5-17.5); KETONE, URINE AUTO NEGATIVE (NEGATIVE); LEUKOCYTE ESTERASE, URINE AUTO NEGATIVE (NEGATIVE); LYMPH # 1.8 10^3/uL (1.5-5.0); LYMPH % 35.2 % (24.0-44.0); MEAN CORPUSCULAR HEMOGLOBIN 29.5 pg (27.0-33.0); MEAN CORPUSCULAR HGB CONC 32.4 g/dl (32.0-36.5); MONO # 0.5 10^3/uL (0.0-0.8); MONO % 9.7 % (2.0-8.0); MUCUS, URINE SMALL (NEGATIVE); NEUTROPHILS # 2.5 10^3/uL (1.5-8.5); NEUTROPHILS % 48.6 % (36.0-66.0); NITRITE, URINE AUTO NEGATIVE (NEGATIVE); PLATELET COUNT, AUTOMATED 322 10^3/uL (150-450); PROTEIN, URINE AUTO NEGATIVE (NEGATIVE); RBC, URINE AUTO 2 /HPF (0-3); RED BLOOD COUNT 4.44 10^6/uL (4.30-6.10); SQUAMOUS EPITHELIAL CELL UR AU 0 /HPF (0-6); UROBILINOGEN, URINE AUTO 0.2 mg/dL (0.0-2.0); WBC, URINE AUTO 0 /HPF (0-3); WHITE BLOOD COUNT 5.1 10^3/uL (4.0-10.0)
[2024-07-17 17:51] LABS: BLOOD UREA NITROGEN 22 MG/DL (9-23); CALCIUM LEVEL 9.5 MG/DL (8.3-10.6); CARBON DIOXIDE LEVEL 26 MMOL/L (20-31); CHLORIDE LEVEL 110 MMOL/L (98-107); CREATININE FOR GFR 1.01 MG/DL (0.70-1.30); GLOMERULAR FILTRATION RATE > 60.0 (>49); GLUCOSE, FASTING 91 MG/DL (74-106); POTASSIUM SERUM 4.4 MMOL/L (3.5-5.1); SODIUM LEVEL 140 MMOL/L (136-145)
== END ==
LOC: M SFHCCAPE 10:00
PROVIDERS: ATTEND Physician Assistant Medical
DX: Z01.818 Encounter for other preprocedural examination (principal)

== ENCOUNTER → 2024-07-22 | Outpatient (CLI) | payer MEDICARE, BC | LOC: M CLY 07:59 | PROVIDERS: ATTEND Emergency Medicine | DX: N20.0 Calculus of kidney (principal) ==

== ENCOUNTER → 2024-08-06 | Outpatient (CLI) | payer MEDICARE, BC | LOC: M RAD 13:23 | PROVIDERS: ATTEND Urology | DX: N20.0 Calculus of kidney (principal) ==

== ENCOUNTER → 2024-08-07 | Outpatient (REF) | payer MEDICARE, BC ==
[2024-08-07 18:27] LABS: APPEARANCE, URINE CLEAR (CLEAR); BACTERIA, URINE AUTO NEGATIVE (NEGATIVE); BILIRUBIN, URINE AUTO NEGATIVE (NEGATIVE); BLOOD, URINE BLOOD 1+ (NEGATIVE); COLOR, URINE YELLOW (YELLOW); GLUCOSE, URINE (UA) AUTO NEGATIVE (NEGATIVE); KETONE, URINE AUTO NEGATIVE (NEGATIVE); LEUKOCYTE ESTERASE, URINE AUTO NEGATIVE (NEGATIVE); MUCUS, URINE SMALL (NEGATIVE); NITRITE, URINE AUTO NEGATIVE (NEGATIVE); PROTEIN, URINE AUTO NEGATIVE (NEGATIVE); RBC, URINE AUTO 1 /HPF (0-3); SPECIFIC GRAVITY URINE AUTO 1.016 (1.002-1.035); SQUAMOUS EPITHELIAL CELL UR AU 0 /HPF (0-6); UROBILINOGEN, URINE AUTO 0.2 mg/dL (0.0-2.0); WBC, URINE AUTO 0 /HPF (0-3)
== END ==
LOC: M LABDRWCV 16:42
PROVIDERS: ATTEND Urology
DX: Z01.812 Encounter for preprocedural laboratory examination (principal); Z79.899 Other long term (current) drug therapy

== ENCOUNTER → 2024-08-20 | Outpatient (CLI) | payer MEDICARE, BC | LOC: M WHC 07:03 | PROVIDERS: ATTEND Physician Assistant Medical | DX: N20.0 Calculus of kidney (principal); N28.1 Cyst of kidney, acquired ==

== ENCOUNTER → 2024-08-20 | Outpatient (CLI) | payer MEDICARE, BC | LOC: M PLAIMG 07:05 | PROVIDERS: ATTEND Physician Assistant Medical | DX: N20.0 Calculus of kidney (principal) ==

== ENCOUNTER → 2024-10-02 | Outpatient (CLI) | payer MEDICARE, BC | LOC: M CLY 14:05 | PROVIDERS: ATTEND Physician Assistant Medical | DX: R07.9 Chest pain, unspecified (principal) ==

== ENCOUNTER → 2024-11-11 | Outpatient (REF) | payer MEDICARE, BC ==
[2024-11-11 13:45] LABS: BASO # 0.1 10^3/uL (0.0-0.2); BASO % 1.2 % (0.0-1.0); EOS # 0.4 10^3/uL (0.0-0.5); EOS % 4.9 % (0.0-3.0); HEMATOCRIT 38.1 % (42.0-52.0); HEMOGLOBIN 12.6 g/dl (13.5-17.5); LYMPH % 26.5 % (24.0-44.0); MEAN CORPUSCULAR HGB CONC 33.1 g/dl (32.0-36.5); MEAN CORPUSCULAR VOLUME 87.8 fl (80.0-96.0); MONO # 0.7 10^3/uL (0.0-0.8); MONO % 9.7 % (2.0-8.0); NEUTROPHILS # 4.4 10^3/uL (1.5-8.5); NEUTROPHILS % 57.6 % (36.0-66.0); PLATELET COUNT, AUTOMATED 328 10^3/uL (150-450); RED BLOOD COUNT 4.34 10^6/uL (4.30-6.10); WHITE BLOOD COUNT 7.6 10^3/uL (4.0-10.0)
[2024-11-11 14:15] LABS: PSA SCREENING 0.82 NG/ML (< 4.00)
[2024-11-11 14:18] LABS: THYROID STIMULATING HORMONE 3.073 uIU/ML (0.55-4.78)
[2024-11-11 14:20] LABS: FREE T4 1.03 NG/DL (0.89-1.76)
[2024-11-11 14:23] LABS: ALBUMIN 3.7 G/DL (3.2-5.2); ALKALINE PHOSPHATASE 100 U/L (40-129); ALT/SGPT 26 U/L (7.0-40); AST/SGOT 15 U/L (<34); BILIRUBIN,TOTAL 0.5 MG/DL (0.3-1.2); BLOOD UREA NITROGEN 21 MG/DL (9-23); CALCIUM LEVEL 9.3 MG/DL (8.3-10.6); CARBON DIOXIDE LEVEL 24 MMOL/L (20-31); CHLORIDE LEVEL 110 MMOL/L (98-107); CHOLESTEROL LEVEL 201 MG/DL (<200); CHOLESTEROL RISK RATIO 2.95 (<5); CREATININE FOR GFR 0.96 MG/DL (0.70-1.30); GLOMERULAR FILTRATION RATE > 60.0 (>49); GLUCOSE, FASTING 100 MG/DL (74-106); HDL CHOLESTEROL 68.1 MG/DL (>40); LDL CHOLESTEROL 118.5 MG/DL (<100); NON-HDL-C 132.9 MG/DL; POTASSIUM SERUM 4.5 MMOL/L (3.5-5.1); SODIUM LEVEL 142 MMOL/L (136-145); TOTAL PROTEIN 7.2 G/DL (5.7-8.2); TRIGLYCERIDES LEVEL 72 MG/DL (<150)
[2024-11-13 08:38] LABS: IRON (FE) 74 UG/DL (65-175); TOTAL IRON BINDING CAPACITY 410 UG/DL (250-425)
[2024-11-13 08:40] LABS: FERRITIN 16.2 NG/ML (10.5-307.3); FOLATE > 24.0 NG/ML (>5.4); VITAMIN B12 LEVEL 467 PG/ML (211-911)
== END ==
LOC: M SFHCCAPE 07:18
PROVIDERS: ATTEND Physician Assistant Medical
DX: E78.5 Hyperlipidemia, unspecified (principal); I10 Essential (primary) hypertension; Z86.69 Personal history of other diseases of the nervous system and sense organs; Z12.5 Encounter for screening for malignant neoplasm of prostate; D64.9 Anemia, unspecified
CPT/HCPCS: 36415; 80053; 80061; 82607; 82728; 82746; 83550; 84439; 84443; 85025; G0103